=== PATIENT | female | born 2000 | race Caucasian/White ===

== ENCOUNTER 2019-04-05 10:52 | Outpatient (CLI) | payer BC, MEDICAID, SELFPAY ==
[2019-04-05 11:33] VITALS: BMI 36.6
[2019-04-05 11:34] VITALS: RESP 17; TEMP 36.6
== END 2019-04-05 11:42 | disposition home or self-care (01) ==
LOC: OPOB 10:55
PROVIDERS: Family Provider Pediatrics Adolescent Medicine; Visit Provider Family Medicine
DX: O36.8190 Decreased fetal movements, unspecified trimester, not applicable or unspecified (principal); Z3A.00 Weeks of gestation of pregnancy not specified
CPT/HCPCS: 59025; 99211

== ENCOUNTER 2019-05-03 19:47 | Inpatient (IN) | payer BC, MEDICAID, SELFPAY ==
[2019-05-03] VITALS (14 sets, daily range): BP systolic 0–161; BP diastolic 0–99; PULSE 67–98; RESP 16; TEMP 36.7; BMI 38.4
[2019-05-03] MEDS: miSOPROStol 100 mcg tablet 25 MCG VAGINAL (20:50)
[2019-05-03 22:01] LABS: Basophils % 0.2 %; Eosinophils % 0.4 %; Hematocrit 36.5 % (37.0-47.0); Hemoglobin 12.4 g/dL (11.5-15.3); Lymphocytes # 2.4 10^3/uL (1.5-6.5); Lymphocytes % 24.5 %; Mean Corpuscular Hemoglobin 29.6 pg (28.0-34.0); Mean Corpuscular Volume 87.1 fL (81-99); Mean Platelet Volume 11.5 fL (7.4-10.4); Monocytes # 0.6 10^3/uL (0.2-0.9); Monocytes % 6.1 %; Neutrophils # 6.6 10^3/uL (1.8-8.0); Neutrophils % 68.4 %; Nucleated Red Blood Cells % 0 %; Platelet Count 235 10^3/cmm (130-400); Red Blood Count 4.19 10^6/uL (4.1-5.3); Red Cell Distribution Width 12.9 % (12.1-15.1); White Blood Count 9.6 10^3/uL (4.5-13.0)
[2019-05-04] VITALS (80 sets, daily range): BP systolic 0–202; BP diastolic 0–113; PULSE 55–116; RESP 16–20; TEMP 36.6–37.1; O2SAT 94–99
[2019-05-04] MEDS: miSOPROStol 100 mcg tablet 25 MCG VAGINAL (00:50)
[2019-05-04] MEDS: butorphanol 2 mg/mL SDV 1 mL 1 MG IVP (05:48)
[2019-05-04] MEDS: lactated ringers 1,000 ML 999 ML IV (06:00)
[2019-05-04] MEDS: dextrose 5%-lactated ringers 1,000 ML 125 ML IV (07:17)
--- NOTE | 2019-05-04 07:23 | P.ANESUD_ITS ---
Pre-Anesthetic Update Pre-Anesthetic Assessment: Date of Surgery/Procedure: 05/04/19 Preop Xochitl gnosis: labor pain Proposed Procedure: labor epidural Changes from Pre- Anesthetic Assessment: gestational HTN Labs Last 48hrs: Laboratory Results - last 48 hr 05/03/19 20:42 WBC 9.6 RBC 4.19 Hgb 12.4 Hct 36.5 L MCV 87.1 MCH 29.6 MCHC 34.0 RDW 12.9 Plt Count 235 MPV 11.5 H Neut % (Auto) 68.4 Lymph % (Auto) 24.5 [place] % (Auto) 6.1 Eos % (Auto) 0.4 Baso % (Auto) 0.2 Neut # (Auto) 6.6 Lymph # (Auto) 2.4 [place] # (Auto) 0.6 Eos # (Auto) 0.0 Baso # (Auto) 0.0 Nucleated RBC % (a uto) 0 Nucleated RBCs # 0.0 Vitals: Temperature 98.4 F 05/04/19 03:55 Temperature Source Oral 05/04/19 03:55 Pulse Rate 55 L 05/04/19 07:20 Pulse Rhythm 05/03/19 20:09 Pulse Strength 3+ Normal 05/03/19 20:09 Respiratory Rate 16 05/04/19 03:55 Respiratory Effort Non-Labored 05/03/19 20:09 Respiratory Depth Normal 05/03/19 20:09 Respiratory Patter n 05/03/19 20:09 Blood Pressure 156/71 05/04/19 07:20 Blood Pressure Mindy n 98 05/04/19 07:20 Blood Pressure Pos ition Semi Fowlers 05/03/19 20:06 Pulse Oximetry 98 05/04/19 07:17 Oxygen Delivery Me thod 05/04/19 03:55 Cardiac Studies: No Data to Display Anesthesia Procedures Date of Procedure: 05/04/19 Epidural: Time Out Performed: Yes Consents Signed: Procedure Consent and NPO Consent Consent: requested by attending/covering physician, from patient, risks and benefits reviewed and patient agrees to proceed Lumbar Level: L3-L4 Epidural position: sitting (To room at 6:30) Epidural procedure: sterile prep of area, 1% lidocaine to numb the area (3 cc skin wheel), 18 g needle (L3- L4), test dose given (5 cc ), 0.2% Ropivacaine bolus ml (8 cc), placed PCEA, no systemic response, sterile dressing applied and 0.2% Ropiavacaine @ mls/hr (13 mls/hr 5cc Q 10 min x3 ) Other Information: CASPER @ 9 cm catheter threaded without difficulty. VSS see OBIX
[2019-05-04] MEDS: ampicillin 2,000 MG in sodium chloride 0.9% (plus) 50 ML 100 MG IV (07:44)
[2019-05-04] MEDS: oxytocin 30 UNIT/500 ML BAG 600 UNIT IV (08:58)
[2019-05-04] MEDS: miSOPROStol 200 mcg Tablet 800 MCG PR (09:03)
[2019-05-04] MEDS: lidocaine 2% INJ 20 mL INJECTION (09:03)
[2019-05-04] MEDS: fentaNYL 50 mcg/mL INJ 2mL 100 MCG IVP (09:14)
--- NOTE | 2019-05-04 09:38 | P.PCNOB_ITS ---
Delivery Note: Date of delivery: May 04, 2019 Pre-Delivery Course: This is a 18-year-old G1, P0 at 39 weeks 5 days gestation who was admitted for induction secondary to mild -induced hypertension. At her 39-week visit she had consistent blood pressures 140s over 90s and since she was already term decision was made to go ahead and proceed with induction. Her cervix was favorable. She received Cytotec x2 and was started on Pitocin. She went from 1 cm to 10 cm dilation in a matter of about 2 hours. She had artificial rupture of membranes with clear fluid noted about 1 hour prior to delivery. She had a normal spontaneous vaginal delivery of a viable female . Weight 7 pounds 2 ounces Apgars 8 and 9 over an intact perineum. The was suctioned at delivery and placed on the mother's chest. The cord was clamped and cut. The placenta was delivered grossly intact and normal to inspection. There was a heavy amount of vaginal bleeding making it difficult to inspect the vaginal vault so 800 mcg of Cytotec was placed rectally. There was an extremely long second-degree right vaginal laceration that extended all the way back just shy of the cervix. This was sutured using 3-0 chromic. There was then a first-degree perineal laceration that was also sutured using 3-0 chromic. Mother and infant were doing well after delivery. Estimated blood loss 350 mL Delivery: Normal spontaneous vaginal delivery Post-Delivery Status: Mother and infant doing well after delivery A&P Assessment and plan (1) Normal spontaneous vaginal delivery: Routine post care Status: Acute Code(s): O80 - Encounter for full-term uncomplicated delivery Coding Level of Care Code Acute Machine Clothing Replacer for Chg Fwd Diagnoses Normal spontaneous vaginal delivery O80
[2019-05-04] MEDS: benzocaine-menthol 78 gm Canister 1 SPRAY TOPICAL (12:31)
[2019-05-04] MEDS: lanolin oint 7 gm 1 APPLIC TOPICAL (12:32)
[2019-05-04] MEDS: docusate sodium 100 mg Capsule PO (18:19)
[2019-05-04 21:35] LABS: Hematocrit 34.5 % (37.0-47.0); Hemoglobin 11.9 g/dL (11.5-15.3); Mean Corpuscular HGB Conc 34.5 g/dL (30.0-36.0); Mean Corpuscular Volume 86.9 fL (81-99); Mean Platelet Volume 10.7 fL (7.4-10.4); Platelet Count 232 10^3/cmm (130-400); Red Blood Count 3.97 10^6/uL (4.1-5.3); Red Cell Distribution Width 12.8 % (12.1-15.1); White Blood Count 15.6 10^3/uL (4.5-13.0)
[2019-05-05 03:30] VITALS: BP 122/79; PULSE 78; RESP 18; TEMP 36.7
[2019-05-05] MEDS: docusate sodium 100 mg Capsule PO ×2 (09:49→17:19)
[2019-05-05 09:51] VITALS: BP 124/74; PULSE 76; RESP 16; TEMP 36.7
--- NOTE | 2019-05-05 12:34 | PM.PN ---
Subjective Subjective: Interval history: Patient is doing well today. She is ambulating, tolerating a regular diet, has no significant pain and states her bleeding seems to be about average. Vitals/I&O/Wt Last Vital Signs Temp 98.1 F 05/05/19 09:51 Pulse 76 05/05/19 09:51 Resp 16 05/05/19 09:51 BP 124/74 05/05/19 09:51 Pulse Ox 98 05/04/19 17:20 05/04/19 05/05/19 05/05/19 22:59 06:59 14:59 Output Total 1000 / 1000 Balance -1000 / 0 Weight last 48 hrs Weight 231 lb Physical Exam Const: COMMON NORMALS: no apparent distress and no limitations HENMT: COMMON NORMALS: normocephalic HEAD & SCALP: normocephalic Eye: COMMON NORMALS: PERRL and EOMs intact bilaterally PUPIL: Yes PERRL Chest: COMMONS NORMALS: inspection of chest normal Resp: COMMON NORMALS: normal respiratory effort, no retractions and clear to auscultation bilaterally AUSCULTATION: clear to auscultation bilaterally Cardio: COMMON NORMALS: regular rate and regular rhythm RATE: regular rate RHYTHM: regular rhythm GI: COMMON NORMALS: normal to inspection, nondistended, normoactive bowel sounds, soft to palpation (Fundus firm U- 3) and non-tender PALPATION: Yes soft (Fundus firm U- 3) Extremity: COMMON NORMALS: no calf tenderness and no pedal edema Urinary Catheter Management^: Low: Cath Placed During This Visit: yes Urethral Indwelling: No Urinary Catheter Date of Insertion: 05/04/19 Urinary Catheter Time of Insertion: 07:52 Data : 05/04/19 21:30 A&P Assessment and plan (1) Normal spontaneous vaginal delivery: Continue to work with mother on breast-feeding. Routine care. Probable discharge home tomorrow if doing well Status: Acute Code(s): O80 - Encounter for full-term uncomplicated delivery Attestations Medical Necessity Statement*: Routine care Coding Level of Care Code Acute Supervisor Customer Records Division for Chg Fwd Diagnoses Normal spontaneous vaginal delivery O80
--- NOTE | 2019-05-05 12:47 | ANE.PACU2 ---
 Inpatient post-anesthesia follow up: Airway intact: Yes Vital signs: Temperature 98.1 F Pulse Rate 76 Respiratory Rate 16 Blood Pressure 124/74 Pulse Oximetry 98 Oxygen Delivery Me thod Room Air Oxygen Flow Rate Fraction of Inspir ed Oxygen Hydration adequate: No Nausea and vomiting: Yes Pain level: 1 Mental status: Baseline Additional Comments: No headaches, no signs of infection, no lower extremity weakness
[2019-05-05 16:00] VITALS: BP 117/78; PULSE 92; RESP 16; TEMP 36.8
[2019-05-05] MEDS: prenatal vitamin Capsule 1 CAP PO (17:19)
[2019-05-05 21:00] VITALS: BP 140/82; PULSE 94; RESP 18; TEMP 36.8
[2019-05-06 04:15] VITALS: BP 125/79; PULSE 79; RESP 16; TEMP 36.8
--- NOTE | 2019-05-06 08:35 | PM.OBGYDC ---
Discharge Providers MOTION PICTURE PRINTER Date of Admission: 05/03/19 19:47 Date of Discharge: 05/06/19 Attending Provider at Admission: Arti Tobar MD Attending Provider at Discharge: Arti Tobar MD Primary Care Provider: DREW Vidales Diagnoses at Discharge Discharge Diagnosis (1) Normal spontaneous vaginal delivery: Status: Acute (2) induced hypertension: Status: Acute Reason for Visit Reason for Visit: Reason For Visit: inudction Hospital Course Hospital Course: This is a 18-year-old G1 now P1 who was admitted for induction secondary to -induced hypertension. Her blood pressures were only mildly elevated 140s over 90s but since she was already 39 weeks 4 days gestation decision was made to proceed with induction. She had a normal spontaneous vaginal delivery of a viable female infant. After delivery mother and infant did well. Mother was GBS positive and the infant was kept for 48 hours after delivery to monitor for any signs and symptoms of infection. Mother was ambulating, tolerating a regular diet, had no pain and very little vaginal bleeding on the day of discharge Information Peripartum Data: Infant Delivery Method: Vaginal Physical Exam Const: COMMON NORMALS: no apparent distress and healthy appearing Eye: COMMON NORMALS: PERRL and EOMs intact bilaterally PUPIL: Yes PERRL Chest: COMMONS NORMALS: inspection of chest normal Resp: COMMON NORMALS: normal respiratory effort Cardio: COMMON NORMALS: regular rate and regular rhythm RATE: regular rate RHYTHM: regular rhythm GI: COMMON NORMALS: soft to palpation and non-tender PALPATION: Yes soft Extremity: GENERAL: No calf tenderness Urinary Catheter Management^: Low: Cath Placed During This Visit: yes Urethral Indwelling: No Urinary Catheter Date of Insertion: 05/04/19 Urinary Catheter Time of Insertion: 07:52 Discharge Data Vitals: Last Vital Signs Temp 98.3 F 05/06/19 04:15 Pulse 79 05/06/19 04:15 Resp 16 05/06/19 04:15 BP 125/79 05/06/19 04:15 Pulse Ox 98 05/04/19 17:20 Discharge Plan Discharge Patient Disposition: Home, Self-Care Condition: Stable Prescriptions: Continued Vitamin 1 TAB 1 tab PO DAILY RF: 0 Discharge Orders: Discharge Order (Routine); Ordered 05/06/19 Ordered By: Arti Tobar Referrals: Arti Tobar MD [Physician] - 1 month Discharge Diet: Usual diet Discharge Activity: Limit activity as instructed Discharge Attestations MOTION PICTURE PRINTER Time Spent in Discharge Care*: less than 30 min Coding Level of Care Code Acute Electric Blanket Wirer for Chg Fwd Diagnoses Normal spontaneous vaginal delivery O80 induced hypertension O13.9
[2019-05-06 08:57] VITALS: BP 130/83; PULSE 111; RESP 16; TEMP 36.5
[2019-05-06] MEDS: docusate sodium 100 mg Capsule PO (08:59)
[2019-05-06] MEDS: prenatal vitamin Capsule 1 CAP PO (08:59)
== END 2019-05-06 09:25 | disposition home or self-care (01) | DRG 807 ==
PROVIDERS: Admitting Provider Family Medicine; Family Provider Pediatrics Adolescent Medicine; Visit Provider Family Medicine
DX: O13.4 Gestational [pregnancy-induced] hypertension without significant proteinuria, complicating childbirth (principal); Z37.0 Single live birth; Z3A.39 39 weeks gestation of pregnancy; O70.1 Second degree perineal laceration during delivery
CPT/HCPCS: 12345; 36415; 51702; 59409; 85025; 85027; 96375; 98960; J0290; J0595; J2001; J2795; J3010

== ENCOUNTER 2020-09-19 18:28 | Outpatient (CLI) | payer BC, MEDICAID, SELFPAY ==
[2020-09-19 18:30] VITALS: BMI 41.5
[2020-09-19 18:35] VITALS: BP 137/78; PULSE 121; TEMP 36.5
[2020-09-19 18:40] VITALS: RESP 18
[2020-09-19 18:55] VITALS: BP 125/74; PULSE 107
[2020-09-19 20:22] LABS: Total Volume, Urine 1500 mL
[2020-09-19 20:35] LABS: Urine Total Protein 8.7 mg/24HR (0-150); Urine Total Protein 24 Hour 130.5 mg/dL (0-150)
== END 2020-09-19 19:10 | disposition home or self-care (01) ==
LOC: OPOB 18:31 → OBGYN 18:32
PROVIDERS: PCP Family Medicine; Visit Provider Family Medicine
DX: O16.9 Unspecified maternal hypertension, unspecified trimester (principal); Z3A.00 Weeks of gestation of pregnancy not specified
CPT/HCPCS: 59025; 84156; 99211

== ENCOUNTER 2020-10-01 17:35 | Outpatient (CLI) | payer BC, MEDICAID, SELFPAY ==
[2020-10-01 17:30] VITALS: BMI 43.9
[2020-10-01 17:41] VITALS: BP 144/72; PULSE 118
[2020-10-01 18:07] VITALS: RESP 17
== END 2020-10-01 18:18 | disposition home or self-care (01) ==
LOC: OPOB 17:36 → OBGYN 17:37
PROVIDERS: PCP Family Medicine; Visit Provider Family Medicine
DX: O36.8190 Decreased fetal movements, unspecified trimester, not applicable or unspecified (principal); Z3A.00 Weeks of gestation of pregnancy not specified
CPT/HCPCS: 59025; 99211

== ENCOUNTER 2020-10-11 17:20 | Inpatient (IN) | payer BC, MEDICAID, SELFPAY ==
[2020-10-11] VITALS (12 sets, daily range): BP systolic 113–131; BP diastolic 64–83; PULSE 83–101; RESP 18; TEMP 36.6; BMI 43.4
[2020-10-11] MEDS: oxytocin 30 UNIT/500 ML BAG IV (18:55)
[2020-10-11] MEDS: dextrose 5%-lactated ringers 1,000 ML 125 ML IV (18:55)
[2020-10-11] MEDS: ampicillin 2,000 MG in sodium chloride 0.9% (plus) 50 ML 100 MG IV (18:55)
[2020-10-11 19:08] LABS: Basophils % 0.2 %; Eosinophils % 0.5 %; Hemoglobin 11.9 g/dL (11.5-15.3); Lymphocytes # 1.9 10^3/uL (0.8-4.8); Lymphocytes % 23.2 %; Mean Corpuscular HGB Conc 33.1 g/dL (30.0-36.0); Mean Corpuscular Hemoglobin 29.2 pg (28.0-34.0); Mean Corpuscular Volume 88.2 fL (81-99); Mean Platelet Volume 11.7 fL (7.4-10.4); Monocytes # 0.6 10^3/uL (0.2-0.9); Monocytes % 7.9 %; Neutrophils # 5.49 10^3/uL (1.8-7.7); Nucleated Red Blood Cells % 0 %; Platelet Count 218 10^3/cmm (130-400); Positive C 1; Red Blood Count 4.08 10^6/uL (4.1-5.3); Red Cell Distribution Width 13.4 % (12.1-15.1); White Blood Count 8.1 10^3/uL (4.0-10.0)
[2020-10-11 19:29] LABS: Slide Review Slide Review Perform
[2020-10-11 20:29] LABS: Amphetamines Screen Urine Negative (Negative); Barbiturates Screen Urine Negative (Negative); Benzodiazepines Screen Urine Negative (Negative); Cocaine Screen Urine Negative (Negative); Opiate Screen Urine Negative (Negative); PCP Screen Urine Negative (Negative); THC Screen Urine Negative (Negative)
[2020-10-12] VITALS (76 sets, daily range): BP systolic 101–150; BP diastolic 55–92; PULSE 60–109; RESP 17; TEMP 35.8–36.5; O2SAT 89–100
[2020-10-12] MEDS: ampicillin 1,000 MG in sodium chloride 0.9% (plus) 50 ML 100 MG IV ×2 (02:25→06:05)
[2020-10-12] MEDS: dextrose 5%-lactated ringers 1,000 ML 125 ML IV (02:27)
[2020-10-12] MEDS: lactated ringers 1,000 ML 999 ML IV (03:01)
--- NOTE | 2020-10-12 03:55 | ANES.PREANE2 ---
Pre-Anesthetic Assessment Pre-Anesthetic Assessment: Height/Weight: Height 1.63 m Weight 114.759 kg Temp Pulse Resp BP 97.9 F 73 18 142/68 10/11/20 17:43 10/12/20 03:32 10/11/20 19:54 10/12/20 03:32 Preop Diagnosis: labor pain Proposed Procedure: epidural Familial anesthetic complications: none Was Beta Shane taken within 24 hours: N/A Was Clonidine taken within 24 hours: N/A Social: Social History: No alcohol and No tobacco Exam: Pre-Anes Outpt Exam: alert, oriented x 3, clear to auscultation bilaterally and regular rate & rhythm Airway: Submandibular: WNL Cervical ROM: WNL MP: 2 Dentition: Full Pulmonary: Pulmonary: Asthma (hasnt used an inhaler in years) CV/HEM: CV/HEM: HTN (PIH) : : None reported Hepatic: Hepatic: None reported GI: GI: None reported Metabolic: Metabolic: Morbid obesity Musc/skel: Musc/skel: None reported Neuropsych: Neuropsych: None reported Anesthetic Plan: ASA status: 2 Anesthesia: Regional (specify below) Risk of > 500 ml blood loss (7ml/kg in children): No Meds/Allergies Current Medications: Current Medications Generic Name Dose Route Start Last Admin Trade Name Freq PRN Reason Stop Dose Admin Dextrose/Lactated Ringer's 1,000 mls @ 125 m ls/hr 10/11/20 18:30 10/12/20 02:27 Dextrose 5%-Lact ated Ringers IV 125 mls/hr .Q8H MAXIMILIANO Administration Ampicillin Sodium 1,000 mg/ 50 mls @ 100 mls/ hr 10/11/20 22:30 10/12/20 02:25 Sodium Chloride IV 100 mls/hr Q4H MAXIMILIANO Administration Protocol Oxytocin 30 unit in 500 ml s @ 1 mls/hr 10/11/20 18:30 10/11/20 21:25 Pitocin IV 20 milliunit/min .Q24H MAXIMILIANO 20 mls/hr Titration Protocol 1 MILLIUNIT/MIN PFSH Anesthesia PFSH: Family History (Updated 05/03/19 @ 21:24 by Shannan Bradshaw RN) Mother Hypertension Female Reproductive History: : 2 Data Anesthesia CBC & Chem 7: 08/05/21 17:55 Other Labs: Laboratory Results - last 48 hr 10/11/20 10/11/20 17:55 18:45 WBC 8.1 RBC 4.08 L Hgb 11.9 Hct 36.0 L MCV 88.2 MCH 29.2 MCHC 33.1 RDW 13.4 Plt Count 218 MPV 11.7 H Neut % (Auto) 68.0 Lymph % (Auto) 23.2 [place] % (Auto) 7.9 Eos % (Auto) 0.5 Baso % (Auto) 0.2 Neut # (Auto) 5.49 Lymph # (Auto) 1.9 [place] # (Auto) 0.6 Eos # (Auto) 0.0 Baso # (Auto) 0.0 Nucleated RBC % (auto) 0 Nucleated RBCs # 0.0 Urine Opiates Screen Negative Ur Barbiturates Screen Negative Ur Phencyclidine Scrn Negative Ur Amphetamines Screen Negative U Benzodiazepines Scrn Negative Urine Cocaine Screen Negative U Marijuana (THC) Screen Negative Cardiac Studies: No Data to Display
--- NOTE | 2020-10-12 04:22 | P.ANES_ITS ---
Anesthesia Procedures Procedure/Date: 10/12/20 epidural Procedure Narrative: epidural complete, bolus given, epidural pump initiated with COMPUTER SYSTEMS DESIGNER education given, vitals taken during procedure using OBIX system and satisfactory throughout, patient admits to decrease pain, report of procedure to OB RN Epidural: Time Out Performed: Yes Consents Signed: Procedure Consent Consent: requested by attending/covering physician, from patient, risks and benefits reviewed and patient agrees to proceed Lumbar Level: L3-L4 Epidural position: sitting Epidural procedure: sterile prep of area, 1% lidocaine to numb the area (3 mL), 18 g needle, negative for paresthesia passed, neg for paresthesia, test dose given, 1.5% xylocaine 1:200k epi (5 mL), 0.2% Ropivacaine bolus ml (5 mL), placed PCEA, no systemic response, sterile dressing applied, L.U.D. no apparent complications and 0.2% Ropiavacaine @ mls/hr (13 mL/hr)
[2020-10-12] MEDS: ondansetron 2 mg/ML SDV 2 mL 4 MG IVP (07:11)
--- NOTE | 2020-10-12 10:08 | PM.OPHPUD ---
Labor & Delivery H&P Update Date of Procedure: October 11, 2020 Date H&P Performed: 10/11/20 H&P update information: I have reviewed H&P completed within last 30 days, I have examined patient prior to procedure and Changes to prior documentation as noted here Admission Diagnosis: IUP at 39 weeks 4 days gestation -induced hypertension Preop diagnosis: -induced hypertension Planned procedure: Induction Other information: The patient was seen at clinic today for routine follow-up at 39 weeks 4 days gestation. Her blood pressure was significantly elevated at 186/88. She had repeat pressures over 30 minutes time that did not go below 176 systolic. Decision was made to proceed with induction.
--- NOTE | 2020-10-12 10:11 | P.PCNOB_ITS ---
Delivery Note: Date of delivery: October 12, 2020 Pre-Delivery Course: Mother had routine care at [facility]. She was blood type O+ antibody negative, rubella immune. She had GBS positive urine. Interestingly she was positive for amphetamines on her initial drug screen. From my knowledge of the patient this is not consistent with her behaviors and I do suspect a probable false positive. Urine drug screen has been sent on admission. Delivery: This is a 19-year-old G2, P1 at 39 weeks 5 days gestation who was admitted for induction secondary to -induced hypertension. Her blood pressures in office averaged 186/88. The patient cervix was favorable for induction. She was known to be GBS positive bacteriuria and was started on ampicillin protocol. She received an epidural for pain management. Rupture of membranes was clear fluid and occurred when she was pushing, < 1 hour prior to delivery. She had a normal spontaneous vaginal delivery of a viable female weight 3090 g, 6 pounds 13 ounces over an intact perineum. Apgars 8 and 9. The was suctioned at delivery and placed on the mother's chest. The cord was clamped and cut. Cord blood was obtained. The placenta was delivered grossly intact and normal to inspection. There was a deep second- degree right vaginal laceration that was sutured using 3-0 chromic. This continued to bleed significantly and the original suture was removed and the laceration was restitched with good hemostasis. There was a small second-degree left vaginal laceration that was then sutured using 3-0 chromic. Estimated blood loss 400 mL. Mother and doing well after delivery. A&P Assessment and plan (1) induced hypertension: Status: Acute (2) Normal spontaneous vaginal delivery: Status: Acute Coding Level of Care Code Acute Chucking Machine Set Up Operator for [facility] F[facility] Diagnoses induced hypertension O13.9 Normal spontaneous vaginal delivery O80
[2020-10-12] MEDS: benzocaine-menthol 78 gm Canister 1 SPRAY TOPICAL (12:49)
[2020-10-12] MEDS: lanolin oint 7 gm 1 APPLIC TOPICAL (12:50)
[2020-10-12] MEDS: ibuprofen 800 mg tablet PO ×2 (15:55→21:05)
[2020-10-12] MEDS: docusate sodium 100 mg Capsule PO (17:37)
[2020-10-12 21:10] LABS: Hematocrit 28.8 % (37.0-47.0); Hemoglobin 9.5 g/dL (11.5-15.3); Mean Corpuscular Hemoglobin 29.1 pg (28.0-34.0); Mean Corpuscular Volume 88.1 fL (81-99); Mean Platelet Volume 10.5 fL (7.4-10.4); Platelet Count 229 10^3/cmm (130-400); Red Blood Count 3.27 10^6/uL (4.1-5.3); Red Cell Distribution Width 13.6 % (12.1-15.1); White Blood Count 12.5 10^3/uL (4.0-10.0)
[2020-10-13 02:02] VITALS: BP 123/58; PULSE 88; TEMP 36.1; TEMP 37.3
[2020-10-13 04:04] VITALS: BP 125/67; PULSE 82
[2020-10-13 09:40] VITALS: BP 126/67; PULSE 83
[2020-10-13] MEDS: docusate sodium 100 mg Capsule PO (09:40)
[2020-10-13] MEDS: prenatal vitamin Capsule 1 CAP PO (09:40)
[2020-10-13] MEDS: ibuprofen 800 mg tablet PO (09:40)
[2020-10-13 09:41] VITALS: TEMP 36.1
--- NOTE | 2020-10-13 11:21 | PM.OBGYDC ---
Discharge Providers [employer] Date of Admission: 10/11/20 17:20 Date of Discharge: 10/13/20 Attending Provider at Admission: Arti Tobar MD Attending Provider at Discharge: Arti Tobar MD Primary Care Provider: Arti Tobar MD Diagnoses at Discharge Discharge Diagnosis (1) induced hypertension: Status: Acute (2) Normal spontaneous vaginal delivery: Status: Acute Reason for Visit Reason for Visit: INDUCTION Hospital Course Hospital Course This is a 19-year-old G2 now P2 who was admitted for induction secondary to -induced hypertension. Her blood pressures in office were 180s systolic. Interestingly her pressures were not elevated on labor and delivery. She had a normal spontaneous vaginal delivery of a viable female . Mother and infant did well after delivery. Mother was ambulating, tolerating a regular diet, had no pain and was ready to be discharged home. Information Peripartum Data: Delivery Method: Vaginal Physical Exam Narrative: EXAM NARRATIVE: Sitting in bedside chair, alert and oriented, no acute distress, lungs clear to auscultation bilaterally, heart regular rate and rhythm no murmurs, 1+ pedal edema, no calf tenderness, abdomen soft and nontender, fundus firm and U- 2 Urinary Catheter Management^: Low: Cath Placed During This Visit: yes Reason for Continuing Indwelling Catheter: Required Immobilization for Trauma or Surgery or Anesthesia Urinary Catheter Date of Insertion: 10/12/20 Urinary Catheter Time of Insertion: 00:43 Discharge Data Data Completed and Pending: Labs from last 24 hours 10/12/20 20:36 WBC 12.5 H RBC 3.27 L Hgb 9.5 L Hct 28.8 L MCV 88.1 MCH 29.1 MCHC 33.0 RDW 13.6 Plt Count 229 MPV 10.5 H Vitals: Last Vital Signs Temp 97.0 F L 10/13/20 09:41 Pulse 83 10/13/20 09:40 Resp 17 10/12/20 12:38 BP 126/67 10/13/20 09:40 Pulse Ox 99 10/12/20 04:42 Discharge Plan Discharge Patient Disposition: Home Condition: Stable Prescriptions: Continued Vitamin 1 TAB 1 tab PO DAILY RF: 0 Discharge Orders: Discharge Order (Routine); Ordered 10/13/20 Ordered By: Arti Tobar Referrals: Arti Tobar MD [Primary Care Provider] - 1 month Discharge Diet: Usual diet Discharge Activity: Limit activity as instructed Patient Instructions: Depression (GEN), Perineal Care (GEN), Your [place]'s Appearance (GEN), Breast Care for the Breast Feeding Mother (DC), Vaginal Delivery (GEN), Bleeding (DC), OB Discharge Report, OB Food/Drug Interaction Guide, OB Home Care Instructions, OB Care at Home, Opioid Safety, OB Home Care, OB Proud Parent Packet, OB Vaginal Deliveries, Abnormal Bleeding Discharge Attestations [employer] Time Spent in Discharge Care*: less than 30 min Coding Level of Care Code Acute Mobile Sales Technician for Chg Fwd Diagnoses induced hypertension O13.9 Normal spontaneous vaginal delivery O80
[2020-10-13 12:20] VITALS: BP 132/84; PULSE 88; RESP 16; TEMP 36.1; O2SAT 99
== END 2020-10-13 12:15 | disposition home or self-care (01) | DRG 807 ==
LOC: OPOB 10-12 06:59 → OBGYN 10-12 06:59
PROVIDERS: Admitting Provider Family Medicine; PCP Family Medicine; Visit Provider Family Medicine
DX: O13.4 Gestational [pregnancy-induced] hypertension without significant proteinuria, complicating childbirth (principal); Z37.0 Single live birth; O99.214 Obesity complicating childbirth; E66.01 Morbid (severe) obesity due to excess calories; O99.824 Streptococcus B carrier state complicating childbirth; O70.1 Second degree perineal laceration during delivery; O99.52 Diseases of the respiratory system complicating childbirth; J45.909 Unspecified asthma, uncomplicated; Z3A.39 39 weeks gestation of pregnancy
CPT/HCPCS: 36415; 51702; 59025; 59409; 80306; 85025; 85027; 99211; J0290; J2405; J2795